=== PATIENT | male | born 1960 | race Asian ===

== ENCOUNTER 2024-02-27 23:52 | Emergency (ER) | payer BC ==
[~2024-02-27] VITALS: Ht 162.6 cm; Wt 48.5 kg
[2024-02-28 00:05] VITALS: BP_SYST 122; PULSE 77; RESP 16; TEMP 97.7; O2SAT 99
[2024-02-28] MEDS: ASPIRIN 325 MG TABLET PO ONE (00:28)
[2024-02-28] MEDS: HEPARIN SODIUM,PORCINE 5,000 UNITS/ML VIAL IVP ONE (00:30)
[2024-02-28 00:46] LABS: HEMOGLOBIN 14.6 g/dL (14.0-18.0); RED CELL DISTRIBUTION WIDTH 13.6 % (9.0-15.0); WHITE BLOOD COUNT (AUTO) 7.1 K/uL (4.8-10.8)
[2024-02-28 00:51] LABS: BASOPHILS % (AUTO) 0.6 % (0.0-2.0); EOSINOPHILS # (AUTO) 0.1 K/uL (0.0-0.4); EOSINOPHILS % (AUTO) 1.7 % (0.0-4.0); HEMATOCRIT 43.4 % (36-54); LYMPHOCYTES # (AUTO) 1.8 K/uL (1.0-5.5); LYMPHOCYTES % (AUTO) 24.6 % (20.5-51.5); MEAN CORPUSCULAR HEMOGLOBIN 29 pg (27-31); MEAN CORPUSCULAR HGB CONC 34 % (32-36); MEAN CORPUSCULAR VOLUME 87 fL (79.0-98.0); MONOCYTES # (AUTO) 0.7 K/uL (0.0-1.0); MONOCYTES % (AUTO) 9.7 % (1.7-9.3); NEUTROPHILS # (AUTO) 4.5 K/uL (1.8-7.7); NEUTROPHILS % (AUTO) 63.4 % (40.0-70.0); PLATELET COUNT (AUTO) 288 K/uL (130-430); RED BLOOD CELL COUNT(AUTO) 4.98 MIL/uL (4.2-6.2)
[2024-02-28 00:52] LABS: PROTHROMBIN TIME 9.9 SECS (9.5-12.5)
[2024-02-28 00:57] LABS: ALANINE AMINOTRANSFERASE 20 U/L (12-78); ALBUMIN 3.7 g/dL (3.4-4.8); ANION GAP 7 (5-15); ASPARTATE AMINOTRANSFERASE 10 U/L (10-37); BILIRUBIN,DIRECT 0.1 mg/dL (0.0-0.3); CALCIUM 8.7 mg/dL (8.4-11.0); CARBON DIOXIDE 32 mmol/L (23-29); CHLORIDE 100 mmol/L (98-107); CREATININE 1.08 mg/dL (0.55-1.30); GFR AFRICAN AMERICAN 89 mL/min (>90); GLUCOSE 171 mg/dL (74-106); POTASSIUM 3.7 mmol/L (3.5-5.1); SODIUM SERUM 139 mmol/L (136-145); TOTAL BILIRUBIN 0.5 mg/dL (0.0-1.0); TOTAL PROTEIN, SERUM 7.2 g/dL (6.4-8.3); UREA NITROGEN, BLOOD 25 mg/dL (8-21)
[2024-02-28 00:59] LABS: GFR NON AFRICAN-AMERICAN 74 mL/min (>90)
[2024-02-28 01:00] VITALS: TEMP 97.6
[2024-02-28 01:18] VITALS: BP_SYST 118; PULSE 78; RESP 20; O2SAT 98
== END 2024-02-28 00:45 | disposition short-term general hospital (02) ==
LOC: SED 23:52
DX: I21.3 ST elevation (STEMI) myocardial infarction of unspecified site (principal); R10.9 Unspecified abdominal pain; E11.9 Type 2 diabetes mellitus without complications
CPT/HCPCS: 99291; 80076; 80048; 83880; 85025; 85610; 85730; 84484; 36415; 96374; 93005; 71045; J1644